=== PATIENT | female | born 1955 | race Caucasian/White ===

== ENCOUNTER → 2020-04-01 | Outpatient (CLI) | payer OTHER ==
[~2020-04-01] MED LIST: ASPIRIN81 M1 PO; CALCIUM 500 +1 EAC4 PO; ONE DAILY COMP1 EACH PO; VITAMIN C500 M8 PO
== END | disposition home or self-care (01) ==
LOC: COVID19 00:42
PROVIDERS: ATTEND Surgery
DX: Z01.812 Encounter for preprocedural laboratory examination (principal); Z20.828 Contact with and (suspected) exposure to other viral communicable diseases

== ENCOUNTER → 2020-04-07 | Day surgery (SDC) | payer OTHER ==
[~2020-04-07] VITALS: Ht 167.6 cm; Wt 72.6 kg
[2020-04-07 08:20] VITALS: BP 133/81
[2020-04-07 11:08] VITALS: BP 126/78
[2020-04-07 11:23] VITALS: BP 146/79; BP 147/79
[2020-04-07 11:38] VITALS: BP 146/80
== END | disposition home or self-care (01) ==
LOC: SDC 04-04 10:15
PROVIDERS: ATTEND Surgery
DX: Z12.11 Encounter for screening for malignant neoplasm of colon (principal); L92.8 Other granulomatous disorders of the skin and subcutaneous tissue; K57.30 Diverticulosis of large intestine without perforation or abscess without bleeding; Z79.82 Long term (current) use of aspirin; Z88.0 Allergy status to penicillin; Z88.5 Allergy status to narcotic agent; Z88.2 Allergy status to sulfonamides; Z88.8 Allergy status to other drugs, medicaments and biological substances; Z79.899 Other long term (current) drug therapy; Z98.890 Other specified postprocedural states